=== PATIENT | female | born 1985 | race Caucasian/White ===

== ENCOUNTER 2016-11-19 12:53 | Emergency (ER) | payer OTHER ==
[~2016-11-19] VITALS: Ht 162.6 cm; Wt 75.0 kg
[2016-11-19 12:59] VITALS: TEMP 36.7; Ht 162.6 cm; Wt 75.0 kg
[2016-11-19] MEDS ORDERED: MoRPHine SULFATE 10 MG/ML CARP/VIAL IM STA (13:18)
[2016-11-19] MEDS ORDERED: KETOROLAC TROMETHAMINE 60 MG/2 ML VIAL IM STA (13:18)
[2016-11-19] MEDS ORDERED: ESCI10TA17 PO (13:25)
[2016-11-19] MEDS ORDERED: NXM/40 PO (13:25)
[2016-11-19] MEDS ORDERED: CETI10TA10 PO (13:25)
[2016-11-19] MEDS ORDERED: ONDANSETRON 4MG OD TAB PO ONE (13:30)
--- NOTE | 2016-11-19 14:08 | DIAGNOSTIC IMAGING REPORT ---
RIGHT RIBS UNILATERAL WITH PA CHEST CLINICAL HISTORY: R posterior/lower rib pain Right pain COMPARISON STUDY: None FINDINGS: Normal study IMPRESSION: Normal study Electronically signed by: Rafa Ruggiero M.D. 11/19/2016 2:06 PM Dictated Date/Time: 11/19/2016 2:05 PM
[2016-11-19] MEDS ORDERED: OXYC1TAB3 PO (14:27)
[2016-11-19 14:43] VITALS: BP 116/70; PULSE 72; O2SAT 98
[2016-11-19] MEDS ORDERED: OXYCODONE IR HOME PACK PO ONE (15:00)
--- NOTE | 2016-11-19 15:15 | EMERGENCY ROOM VISIT NOTE ---
History First contact with patient: 13:09 Chief Complaint: FALL Stated Complaint: FALL,SEVERE BACK PAIN History of Present Illness The patient is a 30 year old female who presents to the Emergency Room with complaints of right flank pain. The patient reports that she fell down steps this morning at 3 AM. She was seen at the [facility] emergency department. She reports that they did x-rays of her back, and was told that x- rays were normal. She received a shot of a medicine that started with a "T". She reported that it did not provide any relief. She describes a burning pain in the right lower back region. She denies any worsening pain with deep breathing, and also denies any shortness of breath. She denies any abdominal pain. The patient denies any prior history of chronic back pain, and currently denies any pain radiating into the buttocks or legs. He rates her discomfort an 8 out of 10. The patient reports that she did receive a prescription for Tylenol #3 and Flexeril. She has not had a chance to get these prescriptions filled. Review of Systems 10 system review was performed and was negative except for pertinent positives and negatives as indicated in history of present illness Past Medical/Surgical History Medical Problems: (1) No significant past medical history Surgical Problems: (1) History of dilatation and curettage Family History FH: cancer FH: diabetes mellitus FH: heart disease FH: hypertension FH: kidney disease Social History Smoking Status: Current Every Day Smoker Alcohol Use: occasionally Marital Status: Housing Status: lives with family Occupation Status: employed Current/Historical Medications Scheduled Cetirizine Hcl (Zyrtec), 10 MG PO QAM Escitalopram (Lexapro), 10 MG PO QAM Esomeprazole Magnesium (Nexium), 40 MG PO DAILY Scheduled PRN Oxycodone Ir (Roxicodone Ir), 1 TAB PO Q4H PRN for Pain Allergies Coded Allergies: Penicillins (Unverified Allergy, Severe, RASH, 11/19/16) Physical Exam Vital Signs Date Time Temp Pulse Resp B/P (MAP) Pulse Ox O2 Delivery O2 Flow Rate FiO2 11/19/16 14:43 72 20 116/70 98 11/19/16 12:59 36.7 66 16 143/82 98 Physical Exam CONSTITUTIONAL: Healthy and well nourished. Alert and oriented X 3 with positive affect. Patient appears in moderate discomfort from pain. HEENT: Normocephalic, atraumatic. Pupils equal, round and reactive. No subconjunctival hemorrhage, epistaxis or hemotympanum. NECK: Full active range of motion without discomfort. RESPIRATORY: Clear to auscultation bilaterally with no wheezing, crackles, rhonchi or stridor. Deep breathing does not worsen the patient's discomfort. CARDIOVASCULAR: Regular rate and rhythm with no murmurs, rubs or gallops. GASTROINTESTINAL: Bowel sounds present in all quadrants. Abdomen is soft and nontender to palpation. MUSCULOSKELETAL: Examination does not show any focal tenderness to palpation through the central thoracolumbar spine. She has tenderness to palpation of the right lumbar paraspinous muscle and flank tissue. She also has tenderness to palpation through the right posterior inferior ribs. No crepitance or subcutaneous emphysema noted. Negative logroll and negative straight leg raise bilaterally. INTEGUMENTARY: No rash or other significant dermatologic conditions noted. NEUROLOGIC: No focal neurologic deficits noted. Medical Decision & Procedures ER Provider Diagnostic Interpretation: My interpretation of right rib x-rays with PA chest view does not show any acute fractures or pneumothorax. Radiologist report is as follows: RIGHT RIBS UNILATERAL WITH PA CHEST CLINICAL HISTORY: R posterior/lower rib pain Right pain COMPARISON STUDY: None FINDINGS: Normal study IMPRESSION: Normal study Laboratory Results Urine dip Medications Administered Medications (Trade) Dose Ordered Sig/Ramonita Route Start Time Stop Time Status Last Admin Dose Admin Ketorolac Tromethamine (Toradol Inj) 60 mg NOW STAT IM 11/19/16 13:18 11/19/16 13:19 DC 11/19/16 13:51 60 MG Morphine Sulfate (MoRPHine SULFATE INJ) 10 mg NOW STAT IM 11/19/16 13:18 11/19/16 13:19 DC 11/19/16 13:51 10 MG Ondansetron HCl (Zofran Odt) 4 mg ONE ONCE PO 11/19/16 13:30 11/19/16 13:31 DC 11/19/16 13:50 4 MG Oxycodone HCl (Roxicodone Immediate Rel 5MG Home Pack) 1 homepack UD ONCE PO 11/19/16 15:00 11/19/16 15:01 DC 11/19/16 15:07 1 HOMEPACK ED Course Patient history and physical exam were performed. Nurse's notes were reviewed. Vital signs were reviewed and normal. The patient appears in moderate discomfort from pain. She was administered IM morphine and Toradol, along with Zofran 4 mg ODT. Urine dip was performed and negative for hematuria. Right rib x-rays with the PA chest view were normal. The patient was encouraged to intermittently apply ice to areas of discomfort. Ibuprofen and Tylenol in alternating fashion as needed for pain. The patient was provided a prescription for a few OxyIR if needed for worse pain that Tylenol #3 or Flexeril does not cover. She was instructed to follow-up with her family doctor for further pain management. Return to the emergency department for any developing hematuria, shortness of breath or abdominal pain. The patient was happy with plan of care, voiced understanding of all discharge instructions, and rated her pain a 4 out of 10 at the time of discharge. Prior to discharge, the family asked if I could send her prescription OxyIR to another pharmacy as her current pharmacy is closed over the weekend. I explained that since I have already electronically transmitted prescription, I am unable to cancel it without speaking directly with the pharmacy. The patient reports that she does have a written prescription for the Tylenol #3 and Flexeril that she got this morning. The patient was instructed to fill this prescription, and she was also dispensed an OxyIR 5 mg home pack from here. This should hopefully get her through until Monday when she can get her prescriptions filled as needed. Medical Decision [place] Drug Monitoring Program Search Results: patient reviewed within database, no issues identified Impression Primary Impression: Right flank contusion Additional Impression: Fall down steps Departure Information Prescriptions Oxycodone Ir (Roxicodone Ir) 5 Mg Tab 1 TAB PO Q4H Y for Pain, #10 TAB For Initial Treatment Prov: Rolly Bhatia PA 11/19/16 Referrals Saqib Britton M.D. (PCP) Patient Instructions My [facility] Problem Qualifiers Additional Impression: Fall down steps Encounter type: initial encounter Qualified Codes: W10.8XXA - Fall (on) ( from) other stairs and steps, initial encounter
== END 2016-11-19 14:45 | disposition home or self-care (01) ==
LOC: C.EDB 12:55 → C.EDD 14:45
DX: S30.1XXA Contusion of abdominal wall, initial encounter (principal); W10.9XXA Fall (on) (from) unspecified stairs and steps, initial encounter; F17.210 Nicotine dependence, cigarettes, uncomplicated; Z80.9 Family history of malignant neoplasm, unspecified; Z83.3 Family history of diabetes mellitus; Z82.49 Family history of ischemic heart disease and other diseases of the circulatory system; Z84.1 Family history of disorders of kidney and ureter; Z79.899 Other long term (current) drug therapy